=== PATIENT | female | born 1960 | race Caucasian/White ===

== ENCOUNTER 2021-12-13 10:25 | Outpatient (CLI) | payer OTHER | END 2021-12-13 10:26 | disposition home or self-care (01) | LOC: CSHRAD 10:25 | PROVIDERS: ATTEND Otolaryngology Plastic Surgery within the Head & Neck | DX: I69.891 Dysphagia following other cerebrovascular disease (principal); R13.13 Dysphagia, pharyngeal phase; K22.4 Dyskinesia of esophagus | CPT/HCPCS: 74220; 74230 ==